=== PATIENT | female | born 1930 | race Caucasian/White ===

== ENCOUNTER 2016-07-03 20:45 | Observation (INO) | payer OTHER ==
[~2016-07-03] VITALS: Ht 154.9 cm; Wt 78.1 kg
[2016-07-03 22:53] LABS: HEMOGLOBIN 12.4 gm/dl (12.3-15.3); RED BLOOD COUNT 4.07 M/UL (4.00-5.10); WHITE BLOOD COUNT 15.2 K/UL (4.5-11.0)
[2016-07-03 23:11] LABS: BUN/CREATININE RATIO 26 (0-10)
[2016-07-04] MEDS ORDERED: ANASTROZOLE1 MG PO (03:38)
[2016-07-04] MEDS ORDERED: PREDNISONE10 MG PO (03:39)
[2016-07-04] MEDS ORDERED: NORVASC 5 MG TAB5 MG PO (03:39)
[2016-07-04] MEDS ORDERED: CATAPRES 0.1MG0.1 MG PO (03:39)
[2016-07-04] MEDS ORDERED: ZYLOPRIM 100 M100 MG PO (03:40)
[2016-07-04] MEDS ORDERED: PRAVASTATIN SOD40 MG PO (03:40)
[2016-07-04] MEDS ORDERED: CILOSTAZOL50 MG PO (03:41)
[2016-07-04] MEDS ORDERED: VITAMIN B-1000 MCG/M IM (03:42)
[2016-07-04] MEDS ORDERED: FERROUS SULFAT325 MG PO (03:43)
[2016-07-04] MEDS ORDERED: ATENOLOL25 MG PO (03:43)
[2016-07-05 06:22] LABS: HEMOGLOBIN 11.5 gm/dl (12.3-15.3); RED BLOOD COUNT 3.82 M/UL (4.00-5.10)
[2016-07-05 06:24] LABS: WHITE BLOOD COUNT 10.4 K/UL (4.5-11.0)
[2016-07-05 06:49] LABS: BUN/CREATININE RATIO 20 (0-10)
[2016-07-05] MEDS ORDERED: XARELTO15 MG PO (17:43)
== END 2016-07-05 20:00 | disposition home or self-care (01) ==
LOC: ER1 20:45 → M/S 07-04 01:49 → ZEROF 07-04 01:49 → M/S 07-04 02:44
PROVIDERS: Emergency Medicine; Student in an Organized Health Care Education/Training Program; ADMIT Internal Medicine
DX: I26.99 Other pulmonary embolism without acute cor pulmonale (principal); D72.829 Elevated white blood cell count, unspecified; E83.42 Hypomagnesemia; I10 Essential (primary) hypertension; E78.5 Hyperlipidemia, unspecified; I73.9 Peripheral vascular disease, unspecified; Z85.3 Personal history of malignant neoplasm of breast; Z79.01 Long term (current) use of anticoagulants; Z79.891 Long term (current) use of opiate analgesic; Z79.899 Other long term (current) drug therapy; Z90.49 Acquired absence of other specified parts of digestive tract; Z96.659 Presence of unspecified artificial knee joint; Z90.12 Acquired absence of left breast and nipple; Z82.49 Family history of ischemic heart disease and other diseases of the circulatory system
CPT/HCPCS: ECHO; 36415; 71010; 80048; 80053; 81001; 81240; 81241; 82550; 82553; 83690; 83735; 83874; 84484; 85025; 85027; 85300; 85307; 85610; 85670; 85730; 87086; 93005; 93306; 93970; 96360; 96361; 96372; 96375; 96376; 99285; G0378; J1650; J2270; J3420; J7050; Q9962